=== PATIENT | female | born 1975 | race Caucasian/White ===

== ENCOUNTER 2017-09-03 10:49 | Emergency (ER) | payer OTHER ==
[~2017-09-03] VITALS: Ht 167.6 cm; Wt 99.8 kg
[2017-09-03] MEDS ORDERED: CLONAZEPAM2 M1 (11:14)
[2017-09-03] MEDS ORDERED: LINSEED OIL1 ML (11:14)
[2017-09-03] MEDS ORDERED: GRALISE600 MG (11:15)
[2017-09-03] MEDS ORDERED: FLURAZEPAM HCL15 MG (11:15)
[2017-09-03] MEDS ORDERED: SEROQUEL200 MG (11:15)
[2017-09-03] MEDS ORDERED: VISTARIL25 MG (11:15)
[2017-09-03] MEDS ORDERED: SYNTHROID50 MCG (11:16)
[2017-09-03] MEDS ORDERED: LEVOXYL25 MCG PO (15:52)
[2017-09-03] MEDS ORDERED: CARDIOVID PLUS1 EACH PO (15:52)
[2017-09-03] MEDS ORDERED: CIPRO500 MG PO (15:52)
[2017-09-03] MEDS ORDERED: PRAVASTATIN SOD10 MG PO (15:52)
[2017-09-03] MEDS ORDERED: NEURONTIN800 MG PO (15:52)
[2017-09-03] MEDS ORDERED: HYDROCHLOROTH12.5 MG PO (15:52)
== END 2017-09-03 16:10 | disposition home or self-care (01) ==
LOC: ER 10:49
DX: B34.9 Viral infection, unspecified (principal)

== ENCOUNTER 2018-07-25 10:00 | Emergency (ER) | payer OTHER ==
[~2018-07-25] VITALS: Ht 167.6 cm; Wt 72.6 kg
[~2018-07-25 10:00] MED LIST: CARDIOVID PLUS1 EACH PO; CIPRO500 MG PO; CLONAZEPAM2 M1; FLURAZEPAM HCL15 MG; GRALISE600 MG; HYDROCHLOROTH12.5 MG PO; LEVOXYL25 MCG PO; LINSEED OIL1 ML; NEURONTIN800 MG PO; PRAVASTATIN SOD10 MG PO; SEROQUEL200 MG; SYNTHROID50 MCG; VISTARIL25 MG
== END 2018-07-25 17:33 | disposition home or self-care (01) ==
LOC: ER 10:00
DX: N83.292 Other ovarian cyst, left side (principal); N83.291 Other ovarian cyst, right side; R10.32 Left lower quadrant pain

== ENCOUNTER 2021-05-17 06:46 | Emergency (ER) | payer OTHER ==
[~2021-05-17] VITALS: Ht 167.6 cm; Wt 77.1 kg
[2021-05-17] MEDS ORDERED: MUCINEX DM ER1 EAC1 PO (12:16)
[2021-05-17] MEDS ORDERED: ZITHROMAX500 MG PO (12:16)
[2021-05-17] MEDS ORDERED: KETO10TA2 PO (12:16)
[2021-05-17] MEDS ORDERED: FLONASE ALLERG9.9 ML NASAL (12:16)
== END 2021-05-17 13:22 ==
LOC: ER 06:46
DX: J06.9 Acute upper respiratory infection, unspecified (principal); Z20.822 Contact with and (suspected) exposure to COVID-19; B34.9 Viral infection, unspecified

== ENCOUNTER 2022-01-30 08:00 | Inpatient (IN) | payer OTHER ==
[~2022-01-30] VITALS: Ht 167.6 cm; Wt 88.9 kg
[~2022-01-30 08:00] MED LIST changes: +FLONASE ALLERG9.9 ML NASAL; +KETO10TA2 PO; +MUCINEX DM ER1 EAC1 PO; +ZITHROMAX500 MG PO
[2022-01-30] MEDS ORDERED: GRALISE600 MG PO (10:30)
[2022-01-30] MEDS ORDERED: RESTORIL30 M1 PO (10:30)
[2022-01-30] MEDS ORDERED: CLONAZEP PO (10:31)
[2022-01-30] MEDS ORDERED: [UNRECOGNIZED DRUG - OTHER] PO (10:31)
[2022-01-30] MEDS ORDERED: CYMBALTA60 MG PO (10:32)
[2022-02-04] MEDS ORDERED: HYDROXYZINE PAM50 MG (07:53)
[2022-02-04] MEDS ORDERED: LINZESS290 MCG (07:53)
[2022-02-04] MEDS ORDERED: QUETIAPINE FUM300 MG (07:53)
[2022-02-04] MEDS ORDERED: CYANOCOBAL1000 MCG/1 (07:53)
[2022-02-04] MEDS ORDERED: DEXILANT60 MG (07:53)
[2022-02-04] MEDS ORDERED: ROSUVASTATIN CAL5 MG (07:54)
[2022-02-04] MEDS ORDERED: TRAZODONE HCL50 MG (07:54)
[2022-02-04] MEDS ORDERED: NORETHINDRONE0.35 MG (07:54)
[2022-02-04] MEDS ORDERED: LEVOTHYROXINE25 MC1 (07:54)
[2022-02-04] MEDS ORDERED: ARTHRITIS PAIN650 M1 (07:54)
[2022-02-04] MEDS ORDERED: HYDROCHLOROTHIA25 MG (07:54)
== END 2022-02-06 12:43 | disposition home or self-care (01) | DRG 743 ==
LOC: OB/GYN 02-04 05:26 → O/R 02-04 05:26 → SURH 02-04 07:00 → OB/GYN 02-04 14:14
PROVIDERS: ADMIT Obstetrics & Gynecology; ATTEND Obstetrics & Gynecology
PROC: 0UT74ZZ Resection of Bilateral Fallopian Tubes, Percutaneous Endoscopic Approach (ICD-10-PCS; 2022-02-04)
PROC: 0TJB8ZZ Inspection of Bladder, Via Natural or Artificial Opening Endoscopic (ICD-10-PCS; 2022-02-04)
PROC: 0UT94ZZ Resection of Uterus, Percutaneous Endoscopic Approach (ICD-10-PCS; principal; 2022-02-04 07:00)
DX: N85.01 Benign endometrial hyperplasia (principal); N72 Inflammatory disease of cervix uteri; D25.2 Subserosal leiomyoma of uterus; D25.0 Submucous leiomyoma of uterus; Z20.822 Contact with and (suspected) exposure to COVID-19

== ENCOUNTER 2023-05-20 06:42 | Day surgery (SDC) | payer OTHER ==
[~2023-05-20 06:42] MED LIST changes: +ARTHRITIS PAIN650 M1; +CLONAZEP PO; +CYANOCOBAL1000 MCG/1; +CYMBALTA60 MG PO; +DEXILANT60 MG; +GRALISE600 MG PO; +HYDROCHLOROTHIA25 MG; +HYDROXYZINE PAM50 MG; +LEVOTHYROXINE25 MC1; +LINZESS290 MCG; +NORETHINDRONE0.35 MG; +QUETIAPINE FUM300 MG; +RESTORIL30 M1 PO; +ROSUVASTATIN CAL5 MG; +TRAZODONE HCL50 MG; +[UNRECOGNIZED DRUG - OTHER] PO
== END 2023-05-20 16:20 | disposition home or self-care (01) ==
LOC: CIR.AMB 06:42
PROVIDERS: ATTEND Orthopaedic Surgery Hand Surgery
DX: D48.1 Neoplasm of uncertain behavior of connective and other soft tissue (principal); R22.31 Localized swelling, mass and lump, right upper limb; Z20.822 Contact with and (suspected) exposure to COVID-19; E78.5 Hyperlipidemia, unspecified; E03.9 Hypothyroidism, unspecified

== ENCOUNTER 2023-09-30 11:28 | Outpatient (CLI) | payer OTHER | END 2023-09-30 11:30 | disposition home or self-care (01) | LOC: SONOGRAMA 11:28 | PROVIDERS: ATTEND Specialist | DX: D17.1 Benign lipomatous neoplasm of skin and subcutaneous tissue of trunk (principal) ==

== ENCOUNTER 2023-10-23 12:48 | Outpatient (CLI) | payer OTHER | END 2023-10-23 13:05 | disposition home or self-care (01) | LOC: SONOGRAMA 12:48 | PROVIDERS: ATTEND Specialist | DX: R22.41 Localized swelling, mass and lump, right lower limb (principal) ==

== ENCOUNTER 2024-06-28 20:24 | Emergency (ER) | payer OTHER ==
[~2024-06-28] VITALS: Ht 167.6 cm; Wt 72.6 kg
[2024-06-28] MEDS ORDERED: VITAMIN D310 MCG/1 M PO (21:03)
[2024-06-28] MEDS ORDERED: MEPERIDINE HCL/PF 25 MG/ML VIAL IM ONE (21:30)
[2024-06-28 22:06] LABS: HEMATOCRIT 38.1 % (36.0-45.00); HEMOGLOBIN 12.9 g/dL (12.0-15.00); MEAN CELL VOLUME 92.5 fL (80.00-100.00); MEAN CORPUSCULAR HEMOGLOBIN 31.2 pg (27.00-32.0); MEAN CORPUSCULAR HGB CONC 33.8 g/dl (32.0-36.0); PLATELET COUNT 248 K/uL (150-450); RED BLOOD COUNT 4.12 M/uL (4.00-6.00); RED CELL DISTRIBUTION WIDTH 12.6 % (11.5-14.5)
[2024-06-28 22:21] LABS: FIBRINOGEN 244 mg/dL (187.0-446.0); INR 1.02; PARTIAL THROMBOPLASTIN TIME 29.8 SECONDS (22.0-34.0); PROTHROMBIN TIME 11.1 SECONDS (9.0-11.5)
[2024-06-28 22:23] LABS: D DIMER < 0.19 MG/L
[2024-06-28 22:33] LABS: ALBUMIN 3.8 gm/dL (3.4-5.0); BILIRUBIN TOTAL 0.38 mg/dL (0.3-1.2); CALCIUM 8.3 mg/dL (8.5-10.1); CREATININE SERUM 0.55 mg/dL (0.55-1.02); GFR 116.99; GLOBULINA 3.1 G/DL (2.4-3.5); POTASSIUM 3.96 mEq/L (3.5-5.1); TOTAL PROTEIN 6.9 gm/dL (6.4-8.2)
[2024-06-28] MEDS ORDERED: KETO10TA2 PO (23:10)
[2024-06-28] MEDS ORDERED: NORFLEX100MG PO (23:10)
== END 2024-06-28 23:14 | disposition home or self-care (01) ==
LOC: ER 20:26
PROVIDERS: General Practice
DX: M79.661 Pain in right lower leg (principal); M79.7 Fibromyalgia; R29.898 Other symptoms and signs involving the musculoskeletal system